=== PATIENT | female | born 1950 | race Two or more races ===

== ENCOUNTER 2020-08-12 05:50 | Day surgery (SDC) | payer OTHER ==
[~2020-08-12 05:50] MED LIST: ATORVASTATIN CA10 MG PO; B12 ACTIVE1000 MCG PO; FOLIC ACID20 MG PO; IRBESARTAN-HCT1 EACH PO; LEVO-T75 MCG PO; NORVASC2.5 MG PO; VITAL-D RX TAB1 EACH PO
== END 2020-08-12 17:05 | disposition home or self-care (01) ==
LOC: CIR.AMB 05:50 → EDBD 08:00 → CIR.AMB 08:00
PROVIDERS: ATTEND Surgery
DX: D05.11 Intraductal carcinoma in situ of right breast (principal); Z20.822 Contact with and (suspected) exposure to COVID-19